=== PATIENT | female | born 1975 | race Caucasian/White ===

== ENCOUNTER 2016-04-06 02:25 | Inpatient (IN) | payer MEDICAID ==
[~2016-04-06] VITALS: Ht 157.5 cm; Wt 82.0 kg
[2016-04-06] VITALS (14 sets, daily range): BP systolic 100–148; BP diastolic 53–84; PULSE 52–79; RESP 16–20; Ht 157.5 cm; Wt 82.0 kg
[2016-04-06] MEDS ORDERED: PREN1TAB79 PO (02:51)
[2016-04-06] MEDS: LACTATED RINGER'S 1,000 ML IV SCH ×3 (06:16→17:14)
[2016-04-06] MEDS ORDERED: OXYTOCIN 30 UNITS/LR 500 ML IV SCH (07:30)
[2016-04-06] MEDS ORDERED: CEFAZOLIN 2 GM/50 ML (PMX) 50 ML IV SCH (07:30)
[2016-04-06] MEDS ORDERED: OXYTOCIN 30 UNITS/LR 500 ML IV PRN ×2 (07:30→17:30)
[2016-04-06] MEDS ORDERED: METHYLERGONOVINE 0.2 MG INJ IM PRN ×2 (07:30→17:30)
[2016-04-06] MEDS ORDERED: MISOPROSTOL 200 MCG TAB PR PRN ×2 (07:30→17:30)
[2016-04-06] MEDS ORDERED: CARBOPROST 250 MCG INJ IM PRN ×2 (07:30→17:30)
--- NOTE | 2016-04-06 07:34 | TRIAGE ---
OB Triage Datetime Report Generated by CPN: 04/06/2016 07:34 Datetime: 04/06/2016 07:24 Assessment Type: Admission Assessment Vaginal Bleeding: None Maternal Assessment Level of Consciousness: Fully Conscious DTR's/Clonus: DTRs 2+; No Clonus Headache: Denies Blurred Vision: No Respiratory Effort: Unlabored; Regular Rhythm; Equal Expansion Breath Sounds, Left: Clear and Equal Breath Sounds, Right: Clear and Equal Nausea/Vomiting: Denies RUQ Epigastric Pain: Denies Lower Extremities Edema: None Degree: 1+ Upper Extremities Edema: Bilateral Upper Extremities Degree: 1+ Facial Edema: None Fall Risk Assessment History of Falling: (0) No Secondary Diagnosis: (0) No Ambulatory Aid: (0) Bedrest/Nurse Assist IV Therapy: (0) No Gait: (0) Normal/Bedrest/Immobile Mental Status: (0) Oriented to Own Ability Fall Score: 0 Fall Risk Score Definition: No Risk: No action required Labor Evaluation Frequency: Q 6 Duration (sec)2399: 60 Quality: Moderate Pattern: Normal: <= 5 Contractions in 10 Minutes Resting Tone Ilion: Relaxed Heart Rate FHR Baseline Rate: 135 Variability: Moderate 6-25 bpm Accelerations: 15X15 Decelerations: None Category: Category I Pain Assessment Pain Scale: 8 Pain Presence: Intermittent Pain Type: Contraction Pain Location: Abdomen Pain Goal: 2 Vaginal Exam Dilatation (cms): 1.0 Effacement (%): 70 Station: -2 Membrane Status: Intact Datetime: 04/06/2016 07:00 Stage of : OB Triage Labor Evaluation Frequency: 1.5-6.5 Monitor Mode: External Duration (sec)2399: 40-120 Quality: Mild Pattern: Normal: <= 5 Contractions in 10 Minutes Resting Tone Ilion: Relaxed Heart Rate FHR Baseline Rate: 135 Monitor Mode: External US Variability: Moderate 6-25 bpm Accelerations: 15X15 Decelerations: None Category: Category I Datetime: 04/06/2016 06:10 Assessment Type: Triage Datetime: 04/06/2016 06:00 Stage of : OB Triage Labor Evaluation Frequency: 1.5-6 Monitor Mode: External Duration (sec)2399: 40-110 Quality: Mild Pattern: Normal: <= 5 Contractions in 10 Minutes Resting Tone Ilion: Relaxed Heart Rate FHR Baseline Rate: 130 Monitor Mode: External US FHR Baseline Changes: No Baseline Change Variability: Moderate 6-25 bpm Accelerations: 15X15 Decelerations: None Category: Category I Datetime: 04/06/2016 05:34 Stage of : OB Triage Datetime: 04/06/2016 05:08 Vaginal Exam Dilatation (cms): 1.5 Effacement (%): 60 Station: -3 Exam By: SATISH Waddell Vaginal Bleeding: None Cervix, Consistency: Moderate Cervix, Position: Posterior Datetime: 04/06/2016 05:00 Stage of : OB Triage Labor Evaluation Frequency: 4-8 Monitor Mode: External Duration (sec)2399: 70-120 Quality: Mild Pattern: Normal: <= 5 Contractions in 10 Minutes Resting Tone Ilion: Relaxed Heart Rate FHR Baseline Rate: 130 Monitor Mode: External US Variability: Moderate 6-25 bpm Accelerations: 15X15 Decelerations: None Category: Category I Datetime: 04/06/2016 04:00 Stage of : OB Triage Labor Evaluation Frequency: 1-5.5 Monitor Mode: External Duration (sec)2399: 40-110 Quality: Mild Pattern: Normal: <= 5 Contractions in 10 Minutes Resting Tone Ilion: Relaxed Heart Rate FHR Baseline Rate: 135 Monitor Mode: External US FHR Baseline Changes: No Baseline Change Variability: Moderate 6-25 bpm Accelerations: 15X15 Decelerations: None Category: Category I Datetime: 04/06/2016 03:45 Stage of : OB Triage Datetime: 04/06/2016 03:35 Bedside Blood Glucose: 71 Datetime: 04/06/2016 03:17 Monitor Mode: Palpation Resting Tone Ilion: Relaxed Monitor Mode: External US Datetime: 04/06/2016 03:00 Stage of : OB Triage Labor Evaluation Frequency: 1.5-3.5 Monitor Mode: External Duration (sec)2399: 60-80 Quality: Mild Pattern: Normal: <= 5 Contractions in 10 Minutes Resting Tone Ilion: Relaxed Heart Rate FHR Baseline Rate: 135 Monitor Mode: External US Variability: Moderate 6-25 bpm Accelerations: 15X15 Decelerations: None Category: Category I Datetime: 04/06/2016 02:54 Vaginal Exam Dilatation (cms): 1.5 Effacement (%): 60 Station: -3 Exam By: SATISH Waddell Vaginal Bleeding: None Cervix, Consistency: Firm Cervix, Position: Posterior Datetime: 04/06/2016 02:47 Time of Arrival: 04/06/2016 07:10 EGA: 37.5 Arrived By: Wheelchair Datetime: 04/06/2016 02:46 Time of Arrival: 04/06/2016 02:20 Arrived By: Wheelchair Arrived From: Home Chief Complaint: UCs [id number] Movement: Present Contractions: Regular Time Contractions Began: 04/05/2016 09:00 Contractions: [id number] Rupture of Membranes: Denies Vaginal Bleeding: None Vaginal Discharge: Present Recent Sexual Intercouse: Denies Abdominal Trauma: Not Applicable Patient Complaints: Contractions; Cramping; Back Pain Time Provider Notified: 04/06/2016 03:45 Provider Notified: WEBSTER Initial Plan: EFM, VE Datetime: 04/06/2016 02:45 Stage of : OB Triage Assessment Type: Triage Maternal Assessment Level of Consciousness: Fully Conscious DTR's/Clonus: DTRs 2+; No Clonus Headache: Denies Blurred Vision: No Respiratory Effort: Unlabored; Regular Rhythm; Equal Expansion Breath Sounds, Left: Clear and Equal Breath Sounds, Right: Clear and Equal Nausea/Vomiting: Hx of Nausea/Vomiting (Annotations: Nausea 1hr ago) RUQ Epigastric Pain: Denies Lower Extremities Edema: Bilateral Lower Extremities Degree: 1+ Upper Extremities Edema: None Degree: None Facial Edema: None Temperature Route: Oral Fall Risk Assessment History of Falling: (0) No Secondary Diagnosis: (0) No Ambulatory Aid: (0) Bedrest/Nurse Assist IV Therapy: (0) No Gait: (0) Normal/Bedrest/Immobile Mental Status: (0) Oriented to Own Ability Fall Score: 0 Fall Risk Score Definition: No Risk: No action required Pain Assessment Pain Scale: 8 Pain Presence: Intermittent Pain Type: Cramping; Contraction Pain Location: Abdomen; Back Pain Relief Measures: Comfort Measures Datetime: 04/06/2016 02:43 Monitor Mode: External Contraction Comments: Ilion applied Heart Rate FHR Baseline Rate: 135 Monitor Mode: External US Comments: EFM applied
[2016-04-06 07:44] LABS: BASOPHILS % 0.6 % (0.0-2.0); EOSINOPHILS % 0.4 % (0.0-7.0); HEMATOCRIT 35.2 % (37.0-47.0); HEMOGLOBIN 11.7 g/dl (12.0-16.0); LYMPHOCYTES # 2.1 10^3/ul (0.8-2.9); LYMPHOCYTES % 27.1 % (15.0-51.0); MEAN CORPUSCULAR HEMOGLOBIN 26.4 pg (29.0-33.0); MEAN CORPUSCULAR HGB CONC 33.1 g/dl (32.0-37.0); MEAN CORPUSCULAR VOLUME 79.7 fl (82.0-101.0); MEAN PLATELET VOLUME 13.1 fl (7.4-10.4); MONOCYTE # 0.6 10^3/ul (0.3-0.9); MONOCYTES % 8.4 % (0.0-11.0); NEUTROPHIL # 4.8 10^3/ul (1.6-7.5); NEUTROPHILS % 63.5 % (39.0-77.0); PLATELET COUNT 123 10^3/UL (140-440); RED BLOOD COUNT 4.41 10^6/ul (4.20-5.40); RED CELL DISTRIBUTION WIDTH 18.5 % (11.5-14.5); UNCORRECTED WBC 7.6 10^3/ul (4.8-10.8); WHITE BLOOD COUNT 7.6 10^3/ul (4.8-10.8)
[2016-04-06 07:49] LABS: CONDITION 1; LH ANALYZER COMMENTS 1; SUSPECT 1
[2016-04-06] MEDS ORDERED: TERBUTALINE 1 ML ONE (07:59)
[2016-04-06 08:04] LABS: INR 0.97; PROTIME 12.9 Sec (12.2-14.2)
[2016-04-06 08:05] LABS: PARTIAL THROMBOPLASTIN TIME 31.1 Sec (25.0-35.0)
[2016-04-06] MEDS ORDERED: TERBUTALINE 1 MG/ML INJ SC ONE ×2 (08:30)
[2016-04-06 09:23] LABS: ADD UMIC YES; URINE BILIRUBIN (Dip) NEGATIVE (NEGATIVE); URINE BLOOD (Dip) NEGATIVE (NEGATIVE); URINE COLOR LT. YELLOW (YELLOW); URINE GLUCOSE (Dip) NEGATIVE (NEGATIVE); URINE KETONES (Dip) 40 (NEGATIVE); URINE LEUKOCYTE ESTERASE (Dip) TRACE (NEGATIVE); URINE NITRITE (Dip) NEGATIVE (NEGATIVE); URINE TOTAL PROTEIN (Dip) NEGATIVE (NEGATIVE); URINE UROBILINOGEN (Dip) 0.2 E.U./dL (0.1-1.0)
[2016-04-06 10:01] LABS: SQUAMOUS EPITHELIAL CELL,UR FEW; URINE RBCS NONE SEEN /HPF (0)
[2016-04-06] MEDS ORDERED: ONDANSETRON 4 MG INJ ONE (13:29)
[2016-04-06] MEDS ORDERED: morphine SULFATE/PF (10 MG/10 ML) INJ ONE (13:29)
[2016-04-06] MEDS ORDERED: METOCLOPRAMIDE 10 MG INJ ONE (13:29)
[2016-04-06] MEDS ORDERED: KETOROLAC 30 MG INJ ONE (13:29)
[2016-04-06] MEDS ORDERED: PHENYLephrine (100 MCG/ML) 5ML SYG ONE (13:54)
[2016-04-06] MEDS ORDERED: OXYTOCIN 30 UNITS/LR 500 ML IV ONE (14:21)
--- NOTE | 2016-04-06 14:30 | HP ---
Date/Time of Note Date/Time of Note DATE: 04/06/16 TIME: 14:28 OB - History Hx of Present Free Text/Dictation at 37 weeks in labor previous c/s and multiparity Care: Good Care Ultrasounds: Normal mid trimester US Obstetrical Complications: None Medical Complications: None Past Family/Social History * Past Medical, Surgical, Family and Obstetric Histories reviewed from chart. OB Admission Exam Vital Signs Vital Signs Vital Signs Date Time Temp Pulse Resp B/P Pulse Ox O2 Delivery O2 Flow Rate FiO2 04/06/16 02:51 98.1 75 20 134/83 Room Air Physical Exam HEENT: WNL Heart: Rhythm Normal Lungs: Clear, Equal Abdomen: WNL Extremities: Normal Reflexes: Normal Heart Rate: 140's Intensity: Moderate Last 72 hourBlood Glucose Bedside Glucose - 72 Hours Test 04/06/16 03:35 Bedside Glucose 71mg/dL (70-220) Last 72 hours Lab Results CBC & BMP 04/06/16 07:12 OB Assessment/Plan Reason for admission: active labor Plan: Section ALEKSEY BROWN MD Apr 06, 2016 14:29
--- NOTE | 2016-04-06 14:32 | OPR ---
Operative Report Planned Procedure Procedure date Apr 06, 2016 Performed by: ALEKSEY BROWN MD Assisting provider: MICHELINE LING MD Anesthesia Type: spinal Procedure Description Under satisfactory spinal anesthesia, the patient was prepped and draped and placed in a supine position, tilted to the left. Pfannenstiel incision was made , carried through the subcutaneous tissue. Bleeders brought under control with electrocautery. Fascia incised to the length of the incision. Rectus muscles from the fascia, divided midline. Peritoneum exposed, entered through a transverse incision. Exploration of abdomen revealed gravid uterus. Bladder flap was developed. Transverse incision was made in the lower segment of the uterus. Amniotic sac ruptured. []clear amniotic fluid noted. [] Nasal oropharyngeal suction was performed. The baby was handed to the team for immediate attention. The placenta was delivered manually intact. Uterine cavity was cleaned with wet sponge and drainage established. Uterus closed in 2 layers using []one monocryl in continuous fashion. the right and left tube was ligated using O plain tie and cut. Peritoneal cavity irrigated with warm saline. Sponge, needle and instrument count reported to be correct. Abdominal peritoneum closed with [] continuously. Rectus muscle approximated with []. Fascia closed with one moncryl [], and skin closed with ellie. Estimated blood loss [700mL. Urine bag contained []mL of urine Post-Procedure Findings: Live Baby [], Apgars [] and [], weight [], position [], [] presentation []cord. Specimen removed: Yes Complications: None Pt Condition post procedure: stable Physician Certification I, the undersigned physician, hereby certify that I have discussed the procedure described in this consent form with this patient (or the patient's legal medical office representative), including: * The risk and benefits of the procedure; * Any adverse reactions that may reasonably be expected to occur; * Any alternative efficacious methods of treatment which may be medically viable ; * The potential problems that may occur during recuperation; * Potential for blood transfusion and associated risks/benefits; and * Any research or economic interest I may have regarding this treatment. I further certify that the patient/legally responsible person was encouraged to ask question and that all questions were answered. ALEKSEY BROWN MD Apr 06, 2016 14:32
--- NOTE | 2016-04-06 15:17 | DELSUM ---
Delivery Summary A-C Datetime Report Generated by CPN: 04/06/2016 15:17 DELIVERY PERSONNEL Puppy Walker: Vergara, [place] MATERNAL INFORMATION Delivery Anesthesia: Spinal Medications in Delivery: see anesthesia records Estimated Blood Loss (ml): 700 Placenta Cultured: Yes Maternal Complications: Other Other Maternal Complications: a1dm LABOR SUMMARY EDC: 04/22/2016 00:00 No. Babies in Womb: 1 Attempted: No Labor Anesthesia: None LABOR INFORMATION Reason for Induction: Not Applicable Onset of Labor: 04/05/2016 09:00 Oxytocin: N/A Antibiotics # of Doses: 1 Antibiotics Time of Last Dose: 1344 Steroids Given: None Reason Steroids Not Administered: Not Applicable MEMBRANES Membranes Rupture Method: Artificial Rupture of Membranes: 04/06/2016 13:52 Length of Rupture (hr): 0.10 Amniotic Fluid Color: Clear Amniotic Fluid Amount: Small Amniotic Fluid Odor: Normal STAGES OF LABOR Stage 3 hr: 0 Stage 3 min: 0 Total Time in Labor hr: 28 Total Time in Labor min: 58 CSECTION DELIVERY Primary Indication: Other Other Primary Indication: prev. c/s in labor CSection Urgency: Emergency CSection Incidence: Repeat Labor: Labor Elective: Nonelective CSection Incision: Lower Uterine Transverse Sterilization Procedure: [place] BABY A INFORMATION Delivery Date/Time: 04/06/2016 13:58 Method of Delivery: Born in Route : No : N/A Forceps: N/A Vacuum Extraction: N/A Shoulder Dystocia : N/A SHOULDER DYSTOCIA BABY A Infant Delivery Date/Time: 04/06/2016 13:58 PRESENTATION/POSITION BABY A Presentation: Cephalic Cephalic Presentation: Vertex Vertex Position: Left Occipital Anterior Breech Presentation: N/A PLACENTA INFORMATION BABY A Placenta Delivery Time : 04/06/2016 13:58 Placenta Method of Delivery: Manual Removal Placenta Status: Delivered SCORES BABY A Heart Rate 1 min: >100 bpm Resp Effort 1 min: Good Cry Reflex Irritability 1 min: Cough/Sneeze/Pulls Away Muscle Tone 1 min: Active Motion Color 1 min: Body [place], Extremit Blue Resuscitation Effort 1 min: Tactile Stimulation SCORE 1 MIN: 9 Heart Rate 5 min: >100 bpm Resp Effort 5 min: Good Cry Reflex Irritability 5 min: Cough/Sneeze/Pulls Away Muscle Tone 5 min: Active Motion Color 5 min: Body [place], Extremit Blue SCORE 5 MIN: 9 INFANT INFORMATION BABY A Gestational Age at Delivery: 37.5 Gestational Status: Early Term- 37- 38.6 Weeks Infant Outcome : Liveborn Infant Condition : Stable Sex: Female IDENTIFICATION/MEDS BABY A ID Band Number: [id number] ID Band Location: Right Leg; Left Arm Sensor Applied: Yes Sensor Number: [id number] Sensor Location : Cord Clamp WEIGHT/LENGTH BABY A Infant Birthweight (gm): 3215 Weight (lb): 7 Weight (oz): 1 Infant Length (in): 19.50 Infant Length (cm): 49.53 CORD INFORMATION BABY A No. Cord Vessels: 3 Nuchal Cord : N/A Cord Blood Taken: Yes Infant Suction: Mouth; Nose ASSESSMENT BABY A Complications: None Physical Findings at Delivery: Within Normal Limits Infant Respirations: Appears Normal Resort Host/ALS Called : No Infant Care By: RT/JADE RNC Transferred To: Remains with Mother
--- NOTE | 2016-04-06 15:17 | OPRPT ---
Intraop Record Datetime Report Generated by CPN: 04/06/2016 15:17 Datetime: 04/06/2016 14:33 Sequential Compression Device: Yes Datetime: 04/06/2016 13:22 OR Number: 2 TIMES/PROCEDURE Arrive OR: 04/06/2016 13:28 Depart OR: 04/06/2016 14:30 Anesthesia Start: 04/06/2016 13:18 Anesthesia End: 04/06/2016 14:45 Surgery Start: 04/06/2016 13:57 Surgery End: 04/06/2016 14:23 Preoperative Dx: , 37.5weeks, prev. c/s in labor Surgical Procedure: Section with BTL Uterine Incision: 04/06/2016 13:58 PERSONNEL Surgeon: Gorge Meek Scrub: Starks, Jayy Anesthesia Care Provider: Radha Lang Care: See Delivery Summary for Infant Care Providers Anesthesia Type: Spinal ASA Level: II RISK FOR INJURY Mode of Arrival: Ambulate Procedure Time Out: Correct Patient Identity; Accurate Procedure Consent Form; Agreement on Procedu re to be Done; Relevant Images and Results are Properly Labeled and Displayed; Addressed Need to Adm inister Antibiotics or Fluids for Irrigation; Safety Precautions Based on Patient History or Medicat ion Use; Allergies Reviewed Preoperative Information: Preoperative Checklist Reviewed; Allergies Reviewed; NPO Status Verified RISK FOR ANXIETY/KNOW DEFICIT Emotional Status: Calm/Relaxed Interventions: Provided Education Based on Age and Identified Needs; Communicated Patient Concerns to Appropriate Members of the Health Care Team; Explained Sequence of Events and Perioperative Routi ne; Evaluated Response to Instructions RISK FOR PAIN Pain Teaching: Instructed on Pain Scale Pain Scale: 2.0 PREOPERATIVE OUTCOMES Preoperative Outcomes: Verbalizes/Indicates Decreased Anxiety, Ability to [place], Understanding of Pr ocedure and Sequence of Events. Questions Answered; Demonstrates Adequate Pain Management; Verbaliz es Comfort Related to Transfer/Transport RISK FOR INFECTION Skin Pre-Operative Site: Intact Clip: Clip Clip Location: LOWER ABDOMINAL Prep: Yes Prep By: IU Prep Solution: Chlorohexadine Catheter: Live Catheter Size: 16 Catheter Inserted By: IU Surgical Wound Class: [id number] Dressing Type: Secured Gauze Risk for Impaired Skin Integrity Position in OR: Supine Bony Prominences Protection: Arms Tucked/Padded Positioning Devices: Wedge Risk for Hypothermia Warming Interventions: Warm Rougon(s) Risk for Injury Safety Straps Applied: Legs Sequential Compression Device: Yes Electrosurgical Unit: Yes Electrosurgical Unit Number: [id number] Bipolar Number: [id number] [id number] 2017-12-24 Ground Pad Location: Right Anterior Thigh Coag Number: 50 Cut Number: 50 1st Count Sponge Count: Correct Needle Count: Correct Blade Count: Correct Instrument Count: Not Done 2nd Count Sponge Count: Correct Needle Count: Correct Blade Count: Correct Instrument Count: Correct 3rd Count Sponge Count: Correct Needle Count: Correct Blade Count: Correct Instrument Count: Correct Final Count Sponge Count 4: Correct Needle Count 4: Correct Blade Count 4: Correct Instrument Count 4: Correct Surgeon Acknowledged Count: Yes Final Count Resolution: Count Correct Intraoperative Data Equipment: Non-Invasive Blood Pressure; Pulse Oximeter; EKG; Warming Rougon Blood Products Given: No Implants/Prosthesis Implants/Prosthesis: N/A Grafts: N/A Irrigation Irrigants: Sterile H2O Specimens Specimens: Yes Specimen Type: Placenta Disposition: PATHOLOGY Specimen Type: Fallopian Tubes Disposition: PATHOLOGY Cultures Cultures: N/A X-Ray X-Ray Taken: No Postoperative Skin: Warm; Dry Pain Scale: 0 Condition: Awake Temperature: 97.6 Operative Outcomes: Patient's Surgery Performed Using Aseptic Technique and in a Manner to Prevent Cross-Contamination; Skin Remains Smooth, Intact, Non-reddened, Non-irritated, Free of Bruising; Cor e Body Temperature Remains in Expected Range Transfer To: L_D Datetime: 04/06/2016 02:50 Drug Allergies/Reactions: No Known Allergy (04/06/2016) Datetime: 04/06/2016 02:47 Drug Allergies/Reactions: Denies Food Allergies/Reactions: Denies Latex Allergies/Reactions: No Latex Allergies
[2016-04-06] MEDS ORDERED: ONDANSETRON 4 MG INJ IV PRN (16:00)
[2016-04-06] MEDS ORDERED: NALOXONE (0.4 MG/ML) INJ IV PRN (16:00)
[2016-04-06] MEDS ORDERED: DIPHENHYDRAMINE 50 MG INJ IV PRN (16:00)
[2016-04-06] MEDS ORDERED: HYDROmorphONE 1 MG/ML SYG IV PRN ×3 (16:00)
[2016-04-06] MEDS ORDERED: ACETAMINOPHEN/CODEINE #3 TAB PO PRN (17:30)
[2016-04-06] MEDS ORDERED: NACL 0.9% 3 ML SYG IV SCH (17:30)
[2016-04-06] MEDS ORDERED: NA PHOSPHATE/BIPHOS 133 ML ENEMA PR PRN (17:30)
[2016-04-06] MEDS ORDERED: LANOLIN 7 GM TUBE TOP PRN (17:30)
[2016-04-06] MEDS: OXYTOCIN 30 UNITS/LR 500 ML IV SCH ×2 (18:13→21:33)
[2016-04-06] MEDS: KETOROLAC 30 MG INJ IV PRN (22:44)
[2016-04-07] VITALS (7 sets, daily range): BP systolic 96–121; BP diastolic 56–77; PULSE 82–91; RESP 18–19
[2016-04-07] MEDS: LACTATED RINGER'S 1,000 ML IV SCH ×2 (01:18→08:27)
[2016-04-07] MEDS: KETOROLAC 30 MG INJ IV PRN ×2 (06:46→12:47)
[2016-04-07 08:58] LABS: BASOPHILS % 0.4 % (0.0-2.0); EOSINOPHILS % 0.1 % (0.0-7.0); HEMATOCRIT 25.6 % (37.0-47.0); HEMOGLOBIN 8.6 g/dl (12.0-16.0); LYMPHOCYTES # 1.7 10^3/ul (0.8-2.9); LYMPHOCYTES % 19.9 % (15.0-51.0); MEAN CORPUSCULAR HEMOGLOBIN 26.6 pg (29.0-33.0); MEAN CORPUSCULAR HGB CONC 33.5 g/dl (32.0-37.0); MEAN CORPUSCULAR VOLUME 79.6 fl (82.0-101.0); MEAN PLATELET VOLUME 12.5 fl (7.4-10.4); MONOCYTE # 0.9 10^3/ul (0.3-0.9); MONOCYTES % 10.8 % (0.0-11.0); NEUTROPHIL # 5.9 10^3/ul (1.6-7.5); NEUTROPHILS % 68.8 % (39.0-77.0); PLATELET COUNT 101 10^3/UL (140-440); RED BLOOD COUNT 3.22 10^6/ul (4.20-5.40); RED CELL DISTRIBUTION WIDTH 18.6 % (11.5-14.5); UNCORRECTED WBC 8.5 10^3/ul (4.8-10.8); WHITE BLOOD COUNT 8.5 10^3/ul (4.8-10.8)
[2016-04-07 09:02] LABS: CONDITION 1; LH ANALYZER COMMENTS 1; SUSPECT 1
--- NOTE | 2016-04-07 13:10 | PN ---
Date/Time of Note Date/Time of Note DATE: 04/07/16 TIME: 13:10 OB Subjective Subjective Subjective POD#1 is stable afebrile tolerated diet No VB +Flatus +Voids No sign of depression VS stable Gen NAD Abd soft NT ND Incision intact Genitalia No blood at perinium --->Discharge plan tomorrow --->Ambulation DAVIDSON MALDONADO M.D. Apr 07, 2016 13:10
[2016-04-07] MEDS: IBUPROFEN 800 MG TAB PO SCH ×2 (14:47→21:20)
[2016-04-07] MEDS ORDERED: INFLUENZA VIRUS VACCINE 0.5 ML SYG IM* ONE (20:00)
[2016-04-07] MEDS: OXYCODONE/ACETAMINOPHEN (5/325) TAB PO PRN (23:19)
[2016-04-08 04:00] VITALS: BP 121/75; PULSE 76; RESP 18
[2016-04-08] MEDS: IBUPROFEN 800 MG TAB PO SCH (05:03)
[2016-04-08 08:00] VITALS: BP 112/65; PULSE 73; RESP 18
--- NOTE | 2016-04-08 08:08 | QN ---
Documentation Comment doing well vss abd soft incision c&d cpm ALEKSEY BROWN MD Apr 08, 2016 08:08
--- NOTE | 2016-04-08 08:13 | DS ---
Date/Time of Note Date/Time of Note DATE: 04/08/16 TIME: 08:12 Discharge Summary Admission/Discharge Info Admit Date/Time Apr 06, 2016 at 07:10 Discharge Date/Time Final Diagnosis term preg Procedures c/s repeat and btl Hospital Course unremarkable Home Meds Reported Medications Vit W-Ca,Fe,FA(<1 mg) ( Vitamins) 1 Each Tablet, 1 EACH PO DAILY, TAB 04/06/16 ALEKSEY BROWN MD Apr 08, 2016 08:13
[2016-04-08] MEDS: OXYCODONE/ACETAMINOPHEN (5/325) TAB PO PRN (11:41)
[2016-04-09] MEDS ORDERED: MEASLES,MUMPS,RUBELLA VACCINE INJ SC* ONE (09:00)
[2016-04-09] MEDS ORDERED: DIPHTH/TET/ACEL PERTUSS (ADULT) 0.5 ML VIAL IM* ONE (09:00)
[2016-04-09 12:41] LABS: RUBELLA ANTIBODY - IGG 2.25
== END 2016-04-08 13:45 | disposition home or self-care (01) | DRG 766 ==
LOC: OBT 02:25 → L-D 02:25 → OBT 07:13 → L-D 13:36 → PP1 17:34
PROVIDERS: ADMIT Obstetrics & Gynecology; ATTEND Obstetrics & Gynecology
PROC: 10D00Z1 Extraction of Products of Conception, Low, Open Approach (ICD-10-PCS; principal; 2016-04-06)
PROC: 10907ZC Drainage of Amniotic Fluid, Therapeutic from Products of Conception, Via Natural or Artificial Opening (ICD-10-PCS; 2016-04-06)
DX: O34.211 Maternal care for low transverse scar from previous cesarean delivery (principal); O09.523 Supervision of elderly multigravida, third trimester; Z3A.37 37 weeks gestation of pregnancy; Z37.0 Single live birth
CPT/HCPCS: 36415; 81001; 81003; 82962; 85025; 85610; 85730; 86592; 86703; 86762; 86850; 86900; 86901; 87340; 88302; 88307; 90686; 94760; 96360; 99464; G0463; J0690; J1885; J2274; J2370; J2405; J2590; J2765; J3105; J7120